=== PATIENT | male | born 1990 ===

== ENCOUNTER 2018-10-01 06:46 | Day surgery (SDC) | payer BC ==
[2018-09-30 08:36] VITALS: BMI 34.2
[2018-10-01 07:10] VITALS: O2SAT 100
[2018-10-01] MEDS ORDERED: Propofol 10 mg/ml Inj (20 ML) ONE (09:03)
[2018-10-01] MEDS ORDERED: Lidocaine Hydrochloride 5 ML INJ ONE (09:03)
[2018-10-01] MEDS: Lactated Ringer's 500 ML IV ONE (09:26)
[2018-10-01 15:19] VITALS: RESP 20
[2018-10-01 15:35] VITALS: BP 130/86; PULSE 84
[2018-10-01 15:41] VITALS: TEMP 98
== END 2018-10-01 10:56 | disposition home or self-care (01) ==
LOC: C.ENDO 06:46
PROVIDERS: ATTEND Internal Medicine Gastroenterology
DX: K29.50 Unspecified chronic gastritis without bleeding (principal); K44.9 Diaphragmatic hernia without obstruction or gangrene; K64.1 Second degree hemorrhoids; R10.13 Epigastric pain; R19.7 Diarrhea, unspecified
CPT/HCPCS: 43239; 45380; 88305; 88313; 88342; J2704; J7120